=== PATIENT | male | born 1955 | race Two or more races ===

== ENCOUNTER 2018-11-18 08:45 | Day surgery (SDC) | payer OTHER | END 2018-11-18 14:25 | disposition home or self-care (01) | LOC: AMB-ENDOS 08:45 | DX: D12.7 Benign neoplasm of rectosigmoid junction (principal) ==

== ENCOUNTER 2023-08-03 07:43 | Day surgery (SDC) | payer OTHER ==
[~2023-08-03 07:43] MED LIST: LOTREL 5-20 MG1 CAP PO
[2023-08-03] MEDS ORDERED: COLACE100 MG PO (12:11)
[2023-08-03] MEDS ORDERED: TRAM1TAB98 PO (12:11)
== END 2023-08-03 16:20 | disposition home or self-care (01) ==
LOC: CIR.AMB 07:43
PROVIDERS: ATTEND Surgery
DX: D12.8 Benign neoplasm of rectum (principal); D12.5 Benign neoplasm of sigmoid colon; K62.89 Other specified diseases of anus and rectum; I10 Essential (primary) hypertension; Z20.822 Contact with and (suspected) exposure to COVID-19